=== PATIENT | female | born 1960 | race African-American/Black ===

== ENCOUNTER 2020-03-12 09:02 | Emergency (ER) | payer SELFPAY ==
--- NOTE | 2020-03-12 09:16 | ED.CPR ---
HPI - CPR General Chief Complaint: Cardiac Arrest/CPR Stated Complaint: CARDIAC ARREST Time Seen by Provider: 03/12/20 09:13 Source: EMS Mode of arrival: EMS Limitations: other (ongoing CPR) History of Present Illness HPI narrative: per EMS they were called for ETOH withdrawal seizure she was postictal and they could not obtain O2 or BP, she had a witnessed respiratory arrest in front of them, severity severe, VTACH x 2 with 2 shocks, 300mg amiodarone, 2 epi given, no ROSC en route, intubated without issue and connected to CO2 MD complaint: stopped breathing Onset (ago): minute(s) (started CPR at 842am) Timing confirmed by: other (EMS) Place: home Bystander CPR performed: No AED applied by bystander/fingerprint technician: Yes Shock advised: Yes Number of shocks delivered: 2 Initial findings in the field: lethargic and VTACH/VFIB ROSC in the field: No Associated injuries: No Associated symptoms: other (family states the patient had ETOH withdrawal seizure) Known history of: other (ETOH abuse) Treatments prior to arrival: intubation, chest compressions, defibrillated shocks #, epinephrine mgs # and amiodarone Related Data Allergies Allergy/AdvReac Type Severity Reaction Status Date / Time Unable to Assess Allergy Verified 03/12/20 09:29 Review of Systems Review of Systems: Yes Unobtainable due to mental condition (ongoing CPR) [facility] Past Medical History Attestation statement: The following information was validated with the patient. Medical History (Updated 03/12/20 @ 10:38 by Usha Ashby DO) Alcoholism Social History Social History (Updated 03/12/20 @ 09:46 by Usha Ashby DO) Alcohol intake: current Smoking Status: Current every day smoker Advance Directives: No (Unknown) Advance Directives Information Provided: No () Physical Exam Vital Signs and I&O and Narrative: Vital Signs and I&O: Intake & Output 03/11/20 03/12/20 03/12/20 18:59 06:59 18:59 Weight 72.91 kg Body Mass Index 25.9 Appearance: severe distress, ongoing CPR, no response to painful stimuli, no trauma noted Eyes: fixed and dilated ENT: Pharynx normal. no blood noted Neck: Normal inspection. Neck supple. CVS: no spontaneous heart sounds, good chest compressions, good carotid massage with pulses intact Respiratory: no spontaneous respirations, intubated with bilateral breath sounds Abdomen: Soft not distended Skin: skin cool and dry, pale Extremities: No lower extremity edema. no trauma noted Neuro: no response to pain, no movements, pupils fixed and dilated Course Course Course Narrative: after 30+ minutes of CPR repeat cycles in ED with multiple epi / magnesium, excellent compressions, HCO3 the patient was in asytole and had no cardiac activity on US on repeat checks, no obvious trauma noted, BS 146, efforts held at 914am, ME notified Reevaluation(s) Reevaluation #1: pending call back from ME per staff for 30 minutes Reevaluation #2: call from laurie Martell Reevaluation #3: accepted by [place] [id number] MDM - Cardiac Arrest/CPR MDM Narrative Medical decision making narrative: EMS noted respiratory arrest following presumed ETOH withdrawal seizure, ongoing CPR without ROSC en route, despite adequate CPR patient never regained ROSC in ED and had no cardiac activity on bedside US during repeat checks, resuscitative efforts held at 914am Lab Data Labs: Lab Results 03/12/20 Range/Units 09:05 POC Glucose 146 H (60-115) mg/dL Critical Care Time Critical Care Time Critical Care Time: Yes Total Critical Care Time: 15 Attestation: I personally attest to this time spent taking care of the patient Discharge Plan Discharge Clinical Impression: Cardiac arrest Patient Disposition:
--- NOTE | 2020-03-12 09:37 | PC.NURSE ---
[facility] informed of pt. family not here. no previous visits on record no med hx available, per ems pt richards sz and hx of sz, also hx of alcoholism they will call back in 1.5 hrs
[2020-03-12 09:42] LABS: Glucose, Whole Blood 146 mg/dL (60-115)
--- NOTE | 2020-03-12 09:59 | PC.NURSE ---
[facility] CALLED @ DR SALAS REQUEST @ 09:30 SANDRA ANSWERS, TAKES CALL BACK NUMBER AND SAYS THEY WILL RETURN THE SHORTLY
--- NOTE | 2020-03-12 10:02 | PC.NURSE ---
RETURN CALL FROM SHAHID OF THE [facility]ICE @ 09:38 AND ASKS TO SPEAK WITH DR SALAS,DR SALSA TAKES CALL RIGHT AWAY
[2020-03-12 10:05] VITALS: BMI 25.9
--- NOTE | 2020-03-12 10:05 | PC.NURSE ---
NNJORGECE : [facility] AN CALLS @ [phone] PHONE NUMBER [phone] GIVEN, THEN DR SALAS TAKES OVER CALL
--- NOTE | 2020-03-12 10:21 | PC.NURSE ---
RETURN CALL FROM SHAHID OF THE [facility]ICE @ 10:21AM
--- NOTE | 2020-03-12 10:39 | PC.NURSE ---
RETURN CALL FROM LAB MANAGER OFFICE @ 10:36AM ASKS TO SPEAK WITH DR SALAS PER DR SALAS LAB MANAGER ACCEPTS THIS CASE, GIVES CASE NUMBER OF [id number]
--- NOTE | 2020-03-12 12:30 | PC.NURSE ---
FAMILY CALLS @ THIS TIME WITH HOME NAME OF Laura LEYVA,[facility],[place],
--- NOTE | 2020-03-12 12:47 | PC.NURSE ---
PT D/C TO [facility]
== END 2020-03-12 12:44 | disposition expired ==
PROVIDERS: Emergency Provider Emergency Medicine
DX: I46.9 Cardiac arrest, cause unspecified (principal)
CPT/HCPCS: 82947; 99283; 99285; J0171; J0282; J0461